=== PATIENT | female | born 1940 | race Caucasian/White ===

== ENCOUNTER 2017-11-16 14:17 | Inpatient (IN) | payer MEDICARE ==
[~2017-11-16 14:17] MED LIST: Dexamethasone 20 MG/5 ML VIAL ONE; Glycopyrrolate 0.2 MG/ML 5 ML SYRINGE ONE; Lidocaine 1% PF 5 ML VIAL ONE; Ondansetron HCl/PF 4 MG/2 ML Vial ONE; PHENYLEPHRINE-NS 100 MCG/ML 10 ML SYRINGE ONE; PROPOFOL 200 MG/20 ML VIAL ONE; ePHEDrine/0.9% NaCl/PF SYRINGE 50 mg/10 ml ONE
[2017-11-16] MEDS ORDERED: Fentanyl 100 MCG/2 ML VIAL ONE ×3 (15:26→19:34)
--- NOTE | 2017-11-16 15:46 | RAD ---
RIGHT HIP TWO VIEWS: HISTORY: Fall. FINDINGS: There is an intertrochanteric fracture of the right hip with coxa vara deformity. The bones are mike neralized. IMPRESSION: Intertrochanteric fracture, right hip. POS: [facility]
[2017-11-16 16:16] LABS: #Eosinphils 0.1 thou/uL (0.0-0.7); #Lymphocytes 2.3 thou/uL (1.20-3.40); #Monocytes 0.8 thou/uL (0.11-0.59); #Neutrophils 8.7 thou/uL (1.40-6.50); %Basophils 0.3 % (0.0-1.0); %Eosinophils 0.4 % (0.0-10.0); %Monocytes 6.4 % (0.0-10.0); %Neutrophils 73.9 % (42.0-75.0); Hemoglobin 12.4 g/dL (12.0-16.0); Mean Corpuscular HGB CONC 32.9 g/dL (32.0-36.0); Mean Corpuscular Hemoglobin 30.8 pg (27.0-31.0); Mean Corpuscular Volume 93.4 fL (78.0-98.0); Mean Platelet Volume 7.6 fL (7.4-10.4); Platelet Count 255 thou/uL (130-400); RBC Distribution Width 11.7 % (11.5-14.5); Red Blood Cell (RBC) Count 4.02 mill/uL (4.20-5.40); White Blood Cell (WBC) Count 11.8 thou/uL (4.8-10.8)
[2017-11-16 16:36] LABS: Anion Gap 11 mmol/L (10-20); BUN (Urea Nitrogen) 11 mg/dL (9.8-20.1); Calc. Creatinine Clearance 0 mL/min (70-130); Carbon Dioxide 25 mmol/L (23-31); Chloride 109 mmol/L (98-107); Estimated GFR-MDRD 89; Glucose 99 mg/dL (83-110); Potassium 3.8 mmol/L (3.5-5.1); Sodium 141 mmol/L (136-145)
[2017-11-16] MEDS ORDERED: Clindamycin/D5W 900 mg/50 ml Premix Bag ONE (17:55)
[2017-11-16] MEDS ORDERED: Ketorolac Tromethamine 30 MG/ML VIAL IVP SCH (18:00)
[2017-11-16] MEDS ORDERED: Acetaminophen 1,000 MG in Premix Bag 1 BAG IVPB SCH ×2 (18:00→21:00)
[2017-11-16] MEDS ORDERED: HYDROmorphone 2 MG/ML VIAL SLOW IVP PRN (19:22)
[2017-11-16] MEDS ORDERED: Promethazine HCl 25 MG/ML VIAL IM PRN (19:22)
[2017-11-16] MEDS ORDERED: Promethazine HCl 25 MG/ML VIAL SLOW IVP PRN (19:22)
[2017-11-16] MEDS ORDERED: Ondansetron HCl/PF 4 MG/2 ML Vial IVP PRN ×2 (19:22→20:38)
[2017-11-16] MEDS ORDERED: Meperidine HCl/PF 25 MG/ML VIAL ONE (19:45)
[2017-11-16 20:38] VITALS: BMI 28.8
[2017-11-16] MEDS ORDERED: Sodium Chloride 0.9% 1,000 ML IV SCH (20:38)
[2017-11-16] MEDS ORDERED: Dextrose 50% Abboject 50 ML SYRINGE SLOW IVP PRN (20:38)
[2017-11-16] MEDS ORDERED: Dextrose 5% in Water 1,000 ML IV PRN (20:38)
--- NOTE | 2017-11-16 20:49 | OP ---
DATE OF SURGERY: 11/16/2017 PREOPERATIVE DIAGNOSIS: Right intertrochanteric femur fracture. POSTOPERATIVE DIAGNOSIS: Right intertrochanteric femur fracture. SURGICAL PROCEDURE: Open reduction internal fixation right intertrochanteric femur fracture. ANESTHESIA: General. SURGEON: Ramiro Hitchcock M.D. LOGISTICS TECHNICIAN: Malia Landaverde PA-C. IMPLANTS: Synthes 135 degree 3-hole DHS side plate with 80 mm hip screw and a supplemental 6.5 mm ca ncellous screw for anti-rotation. COMPLICATIONS: None. DRAINS: None. SPECIMENS: None. INDICATIONS: The patient is a pleasant 77-year-old lady who sustained a ground level fall at home, f racturing her right intertrochanteric femur. After discussion with patient including risks and benef its, we decided to proceed with open reduction internal fixation of this fracture. Informed consent has been obtained. I believe all questions have been answered. PROCEDURE: The patient was brought to the operating room and a timeout performed followed by inducti on of general anesthesia. Next, the patient was placed on the fracture table with the well leg held in extension and the injured extremity held in longitudinal traction and slight internal rotation aft er a closed reduction maneuver was performed. Next, a sterile prep and drape was performed of the [facility] lateral thigh. With the reduction maneuver, a near anatomic alignment was achieved. Following t he sterile prep and drape, a vertical incision was made distal to the greater trochanter. After skin was sharply incised, dissection was carried down to the underlying fascia calin. This was incised in -line with the skin incision revealing the vastus lateralis fascia. This fascia was incised in-line with the skin incision and then the muscle belly was swept off the posterior leaflet of the fascia an d then an elevator passed over the anterior femur reflecting the muscle anteriorly gaining access to the lateral cortex of the femur. Next, a threaded guidewire was passed through the lateral cortex of the femur up the neck into the head in a slightly inferior position. Once positioned, a drill for t he 6.5 mm cancellous screw was passed superior to this guidewire on the AP view still approaching a c enter-center position on lateral view. Once appropriately driven, this drill hole was measured for d epth and then an 80 mm 6.5 cancellous partially threaded screw was inserted up this drill hole to get provisional fixation of the fracture and to function as a derotation device. Next, measurement off the guidewire was performed to determine hip screw length and then the step reamer was passed over th e guidewire reaming to a depth of 85 mm. This was then followed by insertion of an 80 mm hip screw w ith the 135 degree sideplate. Once fully driven up into the femoral head, the plate was affixed to t he lateral cortex of the femur with three 4.5 mm screws. At the completion of this, AP, lateral C-ar m images showed anatomic alignment of the fracture with appropriate positioning of the hardware. The incision was then irrigated with bulb syringe and closed in layers with 0 Vicryl fascia, 2-0 Vicryl subcutaneously, and then renata for the skin. A Xeroform gauze and tape dressing was applied to the thigh and then patient was transferred to recovery room in stable condition. There were no complica tions and she tolerated the procedure well.
[2017-11-16] MEDS: Ketorolac Tromethamine 30 MG/ML VIAL IVP SCH (21:13)
[2017-11-16] MEDS: Atorvastatin Calcium 10 MG TAB PO SCH (21:15)
[2017-11-16] MEDS: Clindamycin/D5W 900 MG in Premix Bag 1 BAG IVPB SCH (21:20)
[2017-11-16] MEDS ORDERED: HYDROcodone/Acetaminophen 5/325 mg Tablet PO PRN ×2 (22:26)
[2017-11-16] MEDS ORDERED: hydrALAZINE 20 MG/ML VIAL SLOW IVP PRN (22:28)
[2017-11-17] MEDS: Ketorolac Tromethamine 30 MG/ML VIAL IVP SCH (03:12)
[2017-11-17] MEDS: Clindamycin/D5W 900 MG in Premix Bag 1 BAG IVPB SCH ×2 (05:29→13:57)
[2017-11-17 05:59] LABS: #Eosinphils 0.1 thou/uL (0.0-0.7); #Lymphocytes 0.8 thou/uL (1.20-3.40); #Monocytes 0.5 thou/uL (0.11-0.59); #Neutrophils 9.3 thou/uL (1.40-6.50); %Basophils 0.1 % (0.0-1.0); %Eosinophils 0.6 % (0.0-10.0); %Lymphocytes 7.7 % (21.0-51.0); %Monocytes 4.9 % (0.0-10.0); %Neutrophils 86.7 % (42.0-75.0); Hemoglobin 11.1 g/dL (12.0-16.0); Mean Corpuscular HGB CONC 32.8 g/dL (32.0-36.0); Mean Corpuscular Hemoglobin 30.9 pg (27.0-31.0); Mean Platelet Volume 8.1 fL (7.4-10.4); Platelet Count 229 thou/uL (130-400); RBC Distribution Width 11.8 % (11.5-14.5); Red Blood Cell (RBC) Count 3.61 mill/uL (4.20-5.40); White Blood Cell (WBC) Count 10.7 thou/uL (4.8-10.8)
[2017-11-17 06:34] LABS: Anion Gap 13 mmol/L (10-20); BUN (Urea Nitrogen) 10 mg/dL (9.8-20.1); Calc. Creatinine Clearance 79 mL/min (70-130); Calcium 8.3 mg/dL (7.8-10.44); Carbon Dioxide 21 mmol/L (23-31); Chloride 107 mmol/L (98-107); Estimated GFR-MDRD 86; Glucose 166 mg/dL (83-110); Potassium 4.1 mmol/L (3.5-5.1); Sodium 137 mmol/L (136-145)
--- NOTE | 2017-11-17 07:34 | HP-2 ---
DATE OF ADMISSION: 11/16/2017 ADMITTING ATTENDING: Jolie Singh MD ATTENDING SURGEON: Harry Malhotra DO CONSULTATION: Orthopedics, Dr. Hitchcock. HISTORY OF PRESENT ILLNESS: The patient is a 77-year-old female, who was transferred here from [place] after a reported mechanical fall at home earlier this morning. The patient initially presented to the [place] [facility] complaining of right hip pain. She stated that this morning while she was making up her bed, she tripped and fell on the comforter, falling and landing directly on her right side. She does endorse hitting her head on a chest in the bedroom; however, she denies any loss of consciousness and states that she did not hit her head very hard as the carpet braced her fall on the way down. She also endorses some right knee pain, but states it is nothing in comparison to her hip pain. The patient reports receiving 75 mcg of fentanyl and 5 mg of hydrocodone at the outside facility before being transferred to [facility]. On presentation to the Emergency Department, the patient's vitals were noted to be within normal limits aside from an elevated blood pressure of 174/73. The patient reported that her pain was 8/10 in severity by the time she reached our Emergency Department and was therefore given another 50 mcg of fentanyl. The patient denies any pain, numbness, or tingling distal to the site of injury. She also denies any chest pain, shortness of breath, syncope, or weakness. PAST MEDICAL HISTORY: The patient has a history of hypertension, hyperlipidemia , and GERD. PAST SURGICAL HISTORY: The patient endorses having bilateral knee replacement surgery, left shoulder arthroscopy, an abdominal hernia repair, an appendectomy , and over 40 minor surgeries in her feet in order to "straighten her toes." MEDICATIONS: The patient reports taking atorvastatin 10 mg at bedtime, Protonix 40 mg daily, aspirin 81 mg daily, gabapentin 100 mg at bedtime p.r.n., and losartan daily at an unknown dose. She also endorses taking a daily multivitamin. ALLERGIES: The patient states she is allergic to MORPHINE as it causes nausea and hallucinations. She also endorses allergies to KEFLEX and tramadol both of which cause severe itching. FAMILY HISTORY: The patient endorses hypertension in her father. SOCIAL HISTORY: The patient lives at home in [place], [place] with her of 57 years. She endorses a previous smoking history, but states she quit 40 years ago. She states she smoked about a pack and half a day for 20 years prior to quitting. Denies any alcohol or drug use. REVIEW OF SYSTEMS: Ten-point review of systems was negative other than what is mentioned in the HPI. PHYSICAL EXAMINATION: VITAL SIGNS: Temperature 98.6 degrees Fahrenheit, pulse 74, respirations 18, O2 sat is 96% on room air, blood pressure 162/64. GENERAL: The patient is sitting up, resting comfortably in bed in no acute distress. HEENT: Normocephalic, atraumatic. NECK: Trachea is midline. No JVD. Normal range of motion. HEART: Regular rate and rhythm. No murmurs. LUNGS: Clear to auscultation bilaterally with good inspiratory and expiratory effort. ABDOMEN: Soft, flat, and tender to palpation in the right lower quadrant. Normal active bowel sounds noted. MUSCULOSKELETAL: Pelvis is stable, but tender to palpation in the right hip consistent with the patient's injuries. Good ROM in all but RLE 2/2 pain. Good movement distal to site of injury in RLE. EXTREMITIES: Neurovascularly intact x4. Pedal pulses 2+ bilaterally. NEUROLOGIC: The patient is alert and oriented x3 with no focal deficits noted. LABORATORY DATA: White blood count 11.8, hemoglobin 12.4, hematocrit 37.6, platelets 255. Sodium 141, potassium 3.8, chloride 109, bicarbonate 25, BUN 11 , creatinine 0.65, calcium 9. RADIOGRAPHIC FINDINGS: Right hip x-ray significant for an intertrochanteric fracture of the right hip. ASSESSMENT: 1. Status post mechanical fall. 2. Right intertrochanteric hip fracture. 3. Acute traumatic pain. 4. History of hypertension. 5. History of hyperlipidemia. 6. History of gastroesophageal reflux disease. PLAN: The patient will be admitted to the ortho surgical floor and will be kept n.p.o. in anticipation of likely surgery this afternoon. We will initiate IV perioperative pain control. We will initiate VTE and GI prophylaxis as appropriate. Orthopedic surgery, Dr. Hitchcock, has been consulted and is on the case. We will continue to follow hemoglobin and electrolyte levels with morning blood work. We will consult physical therapy and occupational therapy to start working with the patient tomorrow. We will consult case management to initiate screening the patient for possibility of discharge to inpatient rehabilitation upon leaving the hospital. The evaluation, examination, laboratory, and radiographic findings will be discussed with the trauma attending, Dr. Harry Malhotra, after this dictation. KIRBY
[2017-11-17] MEDS: Ascorbic Acid 500 mg Chewable Tablet PO SCH (08:17)
[2017-11-17] MEDS: Ibuprofen 800 MG TAB PO SCH ×2 (08:19→15:55)
[2017-11-17] MEDS: Polyethylene Glycol 3350 17 GM Packet PO SCH (08:19)
[2017-11-17] MEDS: Senokot S 8.6-50 MG TAB PO SCH ×2 (08:19→21:24)
[2017-11-17] MEDS: Acetaminophen 325 MG TAB PO SCH ×3 (08:19→21:21)
[2017-11-17] MEDS ORDERED: Non-Formulary Item 1 EACH (Omeprazole [Omeprazole] 40 MG) PO SCH (09:00)
[2017-11-17] MEDS ORDERED: Gabapentin 300 MG CAP PO SCH (09:00)
[2017-11-17] MEDS ORDERED: Acetaminophen/Codeine 30-300mg Tablet PO SCH (09:15)
--- NOTE | 2017-11-17 09:25 | RAD ---
RIGHT HIP TWO VIEWS: History: 77-year-old female status post ORIF right hip. FINDINGS: Compression screw and interval fixation screws are placed, stabilizing a comminuted intertrochanteric fracture of the right hip with improvement in position and alignment from the pre surgical study. IMPRESSION: Screw placement stabilizing the intertrochanteric fracture of the right femur with improvement in pos ition and alignment. POS: [facility]
[2017-11-17] MEDS: Gabapentin 300 MG CAP PO SCH ×3 (09:40→21:21)
[2017-11-17] MEDS: Acetaminophen/Codeine 30-300mg Tablet PO SCH ×3 (09:46→21:23)
--- NOTE | 2017-11-17 13:59 | PRG ---
DATE OF SERVICE: 11/17/2017 SUBJECTIVE: Ms. Adrian is a 77-year-old woman, who was admitted following a fall at home. The patie nt sustained right intertrochanteric hip fracture. She is now postoperative day #1, status post open reduction and internal fixation of right intertrochanteric femur fracture. She reports adequate sandra n control this morning. She is tolerating oral intake. She has adequate urinary output. OBJECTIVE: VITAL SIGNS: This morning included blood pressure 125/67, pulse 74, respiratory rate 16, temperature 97.4 degrees Fahrenheit, oxygen saturation is 93% on room air. HEENT EXAMINATION: Reveals normocephalic and atraumatic. NECK: The patient has no jugular venous distention noted. HEART: Reveals regular rate and rhythm. No murmurs or gallops auscultated. LUNGS: Clear to auscultation bilaterally. Her breathing is regular and unlabored. ABDOMEN: Soft, nontender, nondistended. EXTREMITIES: Reveal 2+ radial and pedal pulses bilaterally. No ankle edema is present. NEUROLOGICAL EXAMINATION: Reveals no focal deficits present. LABORATORY FINDINGS: Today includes a CBC, which is stable. White blood cell count 10,700, hemoglob in and hematocrit 11.1 and 33.9 respectively. Platelet count 229,000. Metabolic profile: Sodium 13 7, potassium 4.1, chloride is 107, bicarbonate 21, BUN 10, creatinine 0.67, glucose 166. IMPRESSION: 1. Postoperative day #1, status post open reduction and internal fixation, right intertrochanteric f emur fracture. 2. Resolving acute post-traumatic pain syndrome. PLAN: 1. We will discontinue hydrocodone and initiate Tylenol #3 for pain control. We will change aspirin to 81 mg p.o. b.i.d. to augment nonpharmacological VTE prophylaxis. 2. Increase activity per physical and occupational therapy. The patient has been evaluated by PM&R for possible inpatient rehabilitation post discharge. 3. We will discontinue Acosta catheterization at this time. Monitor patient's urinary output neverth eless. The above findings and plan discussed with the patient, who indicates understanding of the informatio n given. I have answered her questions.
[2017-11-17] MEDS ORDERED: Losartan 25 MG TAB PO SCH (21:00)
[2017-11-17] MEDS: Atorvastatin Calcium 10 MG TAB PO SCH (21:20)
[2017-11-17] MEDS: Aspirin 81 mg Enteric Coated Tablet PO SCH (21:21)
[2017-11-18] MEDS: Ibuprofen 800 MG TAB PO SCH ×2 (00:02→08:10)
[2017-11-18] MEDS: Acetaminophen/Codeine 30-300mg Tablet PO SCH ×4 (02:28→14:15)
[2017-11-18] MEDS: Acetaminophen 325 MG TAB PO SCH ×3 (02:32→14:08)
[2017-11-18 06:26] LABS: Anion Gap 13 mmol/L (10-20); BUN (Urea Nitrogen) 15 mg/dL (9.8-20.1); Calc. Creatinine Clearance 72 mL/min (70-130); Calcium 8.6 mg/dL (7.8-10.44); Carbon Dioxide 24 mmol/L (23-31); Chloride 108 mmol/L (98-107); Estimated GFR-MDRD 76; Glucose 99 mg/dL (83-110); Magnesium 2.3 mg/dL (1.6-2.6); Phosphorus 3.3 mg/dL (2.3-4.7); Potassium 4.5 mmol/L (3.5-5.1); Sodium 140 mmol/L (136-145)
[2017-11-18 07:13] LABS: #Eosinphils 0.1 thou/uL (0.0-0.7); #Lymphocytes 2.9 thou/uL (1.20-3.40); #Monocytes 0.8 thou/uL (0.11-0.59); #Neutrophils 5.3 thou/uL (1.40-6.50); %Basophils 0.5 % (0.0-1.0); %Eosinophils 1.6 % (0.0-10.0); %Monocytes 8.2 % (0.0-10.0); %Neutrophils 57.6 % (42.0-75.0); Hemoglobin 9.7 g/dL (12.0-16.0); Mean Corpuscular Volume 93.8 fL (78.0-98.0); Mean Platelet Volume 7.7 fL (7.4-10.4); Platelet Count 215 thou/uL (130-400); RBC Distribution Width 11.9 % (11.5-14.5); Red Blood Cell (RBC) Count 3.23 mill/uL (4.20-5.40); White Blood Cell (WBC) Count 9.1 thou/uL (4.8-10.8)
[2017-11-18] MEDS: Ascorbic Acid 500 mg Chewable Tablet PO SCH (08:09)
[2017-11-18] MEDS: Senokot S 8.6-50 MG TAB PO SCH (08:10)
[2017-11-18] MEDS: Aspirin 81 mg Enteric Coated Tablet PO SCH (08:10)
[2017-11-18] MEDS: Polyethylene Glycol 3350 17 GM Packet PO SCH (08:11)
[2017-11-18] MEDS: Gabapentin 100 MG CAP PO SCH ×2 (08:24→14:08)
[2017-11-18 11:56] VITALS: BP 150/71; TEMP 98.3
--- NOTE | 2017-11-18 14:03 | DIS-2 ---
DATE OF ADMISSION: 11/16/2017 DATE OF DISCHARGE: 11/18/2017 RESIDENT: Dr. Dominga Gatica ADMITTING ATTENDING: Dr. Harry Malhotra DISCHARGE ATTENDING: Dr. Kevin Driver CONSULTATIONS: Orthopedic Surgery, Dr. Ramiro Hitchcock PROCEDURES: 1. Right hip x-ray which is significant for an intertrochanteric fracture of the right hip. 2. Repeat hip x-ray shows screw placement stabilizing the intertrochanteric fracture of the right femur with improvement in position and alignment. 3. Open reduction internal fixation of a right intertrochanteric femur fracture. PRIMARY DIAGNOSIS: Right intertrochanteric hip fracture. SECONDARY DIAGNOSES: 1. History of hypertension. 2. History of hyperlipidemia. 3. History of gastroesophageal reflux disease. DISCHARGE MEDICATIONS: 1. Omeprazole 40 mg p.o. daily q.a.m. 2. Losartan potassium 100 mg p.o. at bedtime. 3. Ascorbic acid 500 mg p.o. daily. 4. Aspirin 81 mg p.o. at bedtime. 5. Atorvastatin 10 mg p.o. at bedtime. 6. Acetaminophen 650 mg p.o. q.6 hours. 7. Gabapentin 100 mg p.o. t.i.d. 8. Ibuprofen 800 mg p.o. q.8 hours for pain. 9. Acetaminophen with codeine 300 per 30 mg tab 1 tab p.o. b.i.d. for 2 weeks. DISCONTINUED MEDICATIONS: None. HISTORY OF PRESENT ILLNESS AND HOSPITAL COURSE: The patient is a 77-year-old female with a past medical history of hypertension, hyperlipidemia, and GERD who was a transfer to [facility] from [place] after presenting there following a reported mechanical fall at home. The patient initially presented to the [facility] complaining of right hip pain. She stated that, while making up her bed earlier that morning, she tripped and fell over the comforter landing directly on her right side. She was initially given 75 mcg of fentanyl and 5 mg of hydrocodone for pain control before being transferred to [facility] for fracture repair. On presentation to [facility], the patient's vitals were noted to be within normal limits aside from an elevated blood pressure of 174/73. However, the patient stated that her pain at the time of arrival was 8/ 10 in severity and was therefore given another 50 mcg of fentanyl. Initial blood work on presentation was significant for a slightly elevated white blood cell count of 11.8 but was otherwise within normal limits. Imaging on presentation included a right hip x-ray which did show an intertrochanteric fracture of her right hip. Therefore, the Trauma Team and Orthopedic Surgery were consulted to come and evaluate the patient in the emergency department. Upon evaluation by Orthopedic Surgery, the patient was made n.p.o. in anticipation of repairing her femur fracture later that afternoon or early that evening. After being evaluated by the Trauma Team, the patient was admitted to the Trauma Service for postoperative pain control and monitoring overnight. The following morning, the patient was transitioned to p.o. pain medications for pain control. Later that day she also worked with Physical Therapy and did extremely well, walking approximately 30 feet and 140 feet during her 2 sessions. She was also started on DVT and GI prophylaxis as well as a scheduled bowel regimen. By the date of discharge, the patient reported that her pain was well controlled on her current pain regimen including scheduled Tylenol at 650 mg every 6 hours as well as scheduled ibuprofen 800 mg every 8 hours, 100 mg of gabapentin p.o. t.i.d. and Tylenol #3 one tab q.6h. She walked approximately 240 feet with her last session with physical therapy and was therefore recommended to be discharged home and follow up with outpatient rehab upon discharge. The patient was agreeable to this and was therefore cleared for discharge home the following morning. She was instructed to follow up with physical therapy on an outpatient basis, but was given the option to contact inpatient rehab for their services if she found it too difficult to achieve optimal recovery on an outpatient basis. DISPOSITION: Stable. DISCHARGE INSTRUCTIONS: 1. Location: Home. 2. Diet: Heart healthy diet. 3. Activity: As tolerated. 4. Followup: The patient was instructed to follow up with Orthopedic Surgery, Dr. Ramiro Hitchcock within 2 weeks of discharge. She was also instructed to follow up with her primary care physician, Dr. Leonel Grant, within 1 week of discharge. KIRBY
== END 2017-11-18 14:20 | disposition home or self-care (01) | DRG 482 ==
LOC: ERS 14:17 → SDC/OP 17:44 → SURG A 20:34
PROVIDERS: ADMIT Surgery; ATTEND Surgery
PROC: 0QS604Z Reposition Right Upper Femur with Internal Fixation Device, Open Approach (ICD-10-PCS; principal; 2017-11-16)
DX: S72.141A Displaced intertrochanteric fracture of right femur, initial encounter for closed fracture (principal); W18.30XA Fall on same level, unspecified, initial encounter; Y93.E9 Activity, other interior property and clothing maintenance; Y92.013 Bedroom of single-family (private) house as the place of occurrence of the external cause; I10 Essential (primary) hypertension; E78.5 Hyperlipidemia, unspecified; K21.9 Gastro-esophageal reflux disease without esophagitis; Z96.643 Presence of artificial hip joint, bilateral; Z88.5 Allergy status to narcotic agent; Z87.891 Personal history of nicotine dependence
CPT/HCPCS: 36415; 76001; 80048; 83735; 84100; 85025; 93005; 96374; C1713; C1769; G8978-GP-CM; G8979-GP-CJ; G8987-GO-CK; G8988-GO-CI; J0131; J0360; J1100; J1885; J2001; J2175; J2405; J2704; J3010; J3490

== ENCOUNTER → 2018-07-14 | Day surgery (SDC) | payer MEDICARE ==
[2018-07-13 09:23] VITALS: BMI 27.9
[~2018-07-14] MED LIST changes: +Bupivacaine PF 0.5% 30 ML VIAL ONE; +Clindamycin/D5W 900 mg/50 ml Premix Bag ONE; -Dexamethasone 20 MG/5 ML VIAL ONE; +Fentanyl 100 MCG/2 ML VIAL ONE; -Glycopyrrolate 0.2 MG/ML 5 ML SYRINGE ONE; +HYDROcodone/Acetaminophen 5/325 mg Tablet ONE; +Lidocaine 1% (PF) 30 ML VIAL ONE; -Lidocaine 1% PF 5 ML VIAL ONE; +Lidocaine 2% Jelly 5 ML TUBE ONE; -Ondansetron HCl/PF 4 MG/2 ML Vial ONE; -PHENYLEPHRINE-NS 100 MCG/ML 10 ML SYRINGE ONE; -PROPOFOL 200 MG/20 ML VIAL ONE; +Triamcinolone 40 MG/ML VIAL ONE; -ePHEDrine/0.9% NaCl/PF SYRINGE 50 mg/10 ml ONE
--- NOTE | 2018-07-14 20:16 | EKG ---
Test Reason : PREOP Blood Pressure : / mmHG Vent. Rate : 064 BPM Atrial Rate : 064 BPM P-R Int : 176 ms QRS Dur : 088 ms QT Int : 410 ms P-R-T Axes : 053 040 073 degrees QTc Int : 422 ms Normal sinus rhythm Minimal voltage criteria for LVH, may be normal variant Borderline ECG When compared with ECG of 16-NOV-2017 14:41, No significant change was found Confirmed by JENNIFER MACIAS, . SKourtney ([id number]) on 07/14/2018 8:16:28 PM Referred By: JAKE Confirmed By:DR. Janel RODRIGUEZ MD
--- NOTE | 2018-07-15 08:30 | OP ---
DATE OF PROCEDURE: 07/14/2018 PROCEDURE PERFORMED: Right hip hardware removal including DHS and central screw. POSTOPERATIVE DIAGNOSIS: COMPLICATIONS: None. OPTICAL GOODS DRILL OPERATOR: Kelvin Ritchie PA-C IMPLANTS: None. INDICATIONS: Ms. Adrian is a 77-year-old female who fell and fractured the proximal femur. She was treated with a derotational screw and dynamic hip screw and sideplate. She has had chronic pain in her lateral hip related to her hardware. She was indicated for hardware removal to hopefully relieve pain and restore function. Risks have been reviewed in detail. She has elected to proceed with the operation of removal. She is at risk for re-fracture over the next several months. She is aware of this. DESCRIPTION OF PROCEDURE: Ms. Adrian was identified in the preoperative holding area. Her correct extremity was marked. She was carried to the operating room. She was positioned supine. General anesthesia was induced. A multidisciplinary time-out was performed. The right lower extremity was prepped and draped in sterile fashion. We began the procedure with incision of the lateral thigh. We dissected down through the subcutaneous tissues to the fascia, which was opened. We then explored the underlying tissues to the plate. The plate and screw were exposed. We removed the 3 distal screws as well as the central dynamic hip screw. We also removed the derotational screw. All screws and plates were removed. We thoroughly irrigated with copious lavage. We smoothed the bony cortex with a rongeur. We then impacted some cancellous bone chips into the void, into the femoral neck to hopefully allow healing. At this point, we thoroughly irrigated. We then closed with 0 Vicryl suture, 2-0 Vicryl suture, and rentaa for the skin. A sterile dressing was applied. Job ID: [id number]
== END ==
LOC: SDC 10:11
PROVIDERS: ATTEND Orthopaedic Surgery
PROC: 0QP204Z Removal of Internal Fixation Device from Right Pelvic Bone, Open Approach (ICD-10-PCS; principal; 2018-07-14)
DX: T84.84XA Pain due to internal orthopedic prosthetic devices, implants and grafts, initial encounter (principal); S72.141A Displaced intertrochanteric fracture of right femur, initial encounter for closed fracture; I10 Essential (primary) hypertension; E78.5 Hyperlipidemia, unspecified; K21.9 Gastro-esophageal reflux disease without esophagitis; M79.7 Fibromyalgia; Z79.899 Other long term (current) drug therapy; Z87.891 Personal history of nicotine dependence; Z88.1 Allergy status to other antibiotic agents; Z88.6 Allergy status to analgesic agent
CPT/HCPCS: 93005; 93010; J2001; J3010; J3301; J3490; S0020